=== PATIENT | male | born 1965 | race Caucasian/White ===

== ENCOUNTER 2019-12-15 12:43 | Outpatient (CLI) | payer BC ==
--- NOTE | 2019-12-15 14:15 | CT ---
CT STONE PROTOCOL: 12/15/19 HISTORY: Right flank pain. COMPARISON: None. FINDINGS: Absence of oral and IV contrast reduces the sensitivity of exam, particularly for evaluation of solid organs and bowel. No free air or free fluid is seen in the abdomen or pelvis. A large calcified gallstone measuring 4.4 cm. The spleen is enlarged measuring 16 cm in AP dimension. A normal appearing appendix is present. The small bowel loops are not abnormally dilated. No calculi is seen in the kidneys, ureters, or the urinary bladder. There is mild right sided hydrour eteronephrosis. There are periureteric inflammatory changes. The prostate is enlarged. There is no ev idence of aneurysmal dilatation of the abdominal aorta. Fat containing bilateral inguinal hernia are present. There are degenerative changes of the spine. IMPRESSION: 1. Findings suggestive of recent passage of a right sided urinary tract calculus. No evidence of obstructive uropathy is seen. 2. Mild prostatic enlargement. POS: [facility]
== END 2019-12-15 12:44 | disposition home or self-care (01) ==
LOC: CT 12:43
PROVIDERS: ATTEND Urology
DX: N20.0 Calculus of kidney (principal); N40.0 Benign prostatic hyperplasia without lower urinary tract symptoms
CPT/HCPCS: 74176; 81001; 87086

== ENCOUNTER 2020-01-14 05:50 | Outpatient (CLI) | payer BC, OTHER ==
[2020-01-14 14:52] LABS: #Eosinphils 0.1 thou/uL (0.0-0.7); #Lymphocytes 1.6 thou/uL (1.20-3.40); #Monocytes 0.5 thou/uL (0.11-0.59); #Neutrophils 2.2 thou/uL (1.40-6.50); %Basophils 0.8 % (0.0-1.0); %Eosinophils 1.5 % (0.0-10.0); %Monocytes 10.3 % (0.0-10.0); %Neutrophils 50.3 % (42.0-75.0); Hemoglobin 17.4 g/dL (14.0-18.0); Mean Corpuscular HGB CONC 33.9 g/dL (32.0-36.0); Mean Corpuscular Hemoglobin 30.4 pg (27.0-31.0); Mean Corpuscular Volume 89.8 fL (78.0-98.0); Mean Platelet Volume 8.8 fL (7.4-10.4); Platelet Count 163 thou/uL (130-400); RBC Distribution Width 12.3 % (11.5-14.5); Red Blood Cell (RBC) Count 5.73 mill/uL (4.70-6.10); White Blood Cell (WBC) Count 4.5 thou/uL (4.8-10.8)
[2020-01-14 15:10] LABS: ALT (SGPT) 49 U/L (8-55); AST (SGOT) 31 U/L (5-34); Albumin 4.8 g/dL (3.5-5.0); Alkaline Phosphatase 123 U/L (40-110); Anion Gap 14 mmol/L (10-20); BUN (Urea Nitrogen) 17 mg/dL (8.4-25.7); Bilirubin, Direct 0.5 mg/dL (0.1-0.3); Bilirubin, Total 1.6 mg/dL (0.2-1.2); Calc. Creatinine Clearance 0 mL/min (70-130); Calcium 9.8 mg/dL (7.8-10.44); Carbon Dioxide 26 mmol/L (22-29); Chloride 107 mmol/L (98-107); Estimated GFR-MDRD 63; Globulin 2.2 g/dL (2.4-3.5); Glucose 100 mg/dL (70-105); Potassium 4.8 mmol/L (3.5-5.1); Sodium 142 mmol/L (136-145)
[2020-01-15 12:09] LABS: SARS-CoV-2 MS2 Positive; SARS-CoV-2 N Gene Negative; SARS-CoV-2 S Gene Negative; SARS-CoV-2 orf1ab Negative
== END 2020-01-14 05:51 | disposition home or self-care (01) ==
LOC: LABBT 05:50
PROVIDERS: ATTEND Surgery
DX: Z01.812 Encounter for preprocedural laboratory examination (principal); Z11.59 Encounter for screening for other viral diseases; K80.20 Calculus of gallbladder without cholecystitis without obstruction
CPT/HCPCS: 80053; 80076; 85025; 87635; U0003

== ENCOUNTER 2020-01-18 10:02 | Day surgery (SDC) | payer BC ==
[2020-01-11 10:43] VITALS: BMI 34.3
[2020-01-18] MEDS ORDERED: Acetaminophen 500 MG TAB ONE (10:16)
[2020-01-18] MEDS ORDERED: Ketorolac Tromethamine 30 MG/ML VIAL ONE (10:16)
[2020-01-18] MEDS ORDERED: Midazolam HCl 2 mg/2 ml Vial ONE (10:23)
[2020-01-18] MEDS ORDERED: Fentanyl 250 MCG/5 ML VIAL ONE (10:23)
[2020-01-18] MEDS ORDERED: Bupivacaine 0.25% HCL 30 ML VIAL ONE (11:29)
[2020-01-18] MEDS ORDERED: EPINEPHrine 1 MG/ML AMP ONE (11:29)
[2020-01-18] MEDS ORDERED: Iopamidol 50 ML FS ONE (11:29)
[2020-01-18] MEDS ORDERED: Rocuronium Bromide 10 MG/ML (10ML VIAL) ONE (12:40)
[2020-01-18] MEDS ORDERED: Ondansetron PF 4 MG/2 ML Vial ONE (12:40)
[2020-01-18] MEDS ORDERED: PROPOFOL 200 MG/20 ML VIAL ONE (12:40)
[2020-01-18] MEDS ORDERED: Dexamethasone 20 MG/5 ML VIAL ONE (12:40)
[2020-01-18] MEDS ORDERED: Lidocaine 1% PF 5 ML VIAL ONE (12:40)
[2020-01-18] MEDS ORDERED: Glycopyrrolate 0.2 MG/ML 5 ML SYRINGE ONE (12:40)
--- NOTE | 2020-01-18 13:15 | RAD ---
EXAM: XR Cholangiogram in Surgery PROVIDED CLINICAL HISTORY: Intraoperative cholangiogram COMPARISON: None FINDINGS\IMPRESSION: 2 images from an intraoperative cholangiogram are submitted for interpretation. The cystic duct is ca nnulated, and there is opacification of the common duct and visualized intrahepatic ducts predominantly on the right. The left intrahepatic ducts are not well opacified. No persistent filling defect is seen on the provided images, and there is evidence of free spill of contrast into the small bowel. Surgical instruments overlie the right upper quadrant. Correlation with intraoperative f indings is recommended.
--- NOTE | 2020-01-19 19:30 | PDOC.OP ---
Operative Note - Operative Note Operative Note: DATE OF PROCEDURE: 01/18/2020 PROCEDURES: Laparoscopic cholecystectomy with intraoperative cholangiogram and liver biopsy. SURGEON: Florence Bowman M.D. PREOPERATIVE DIAGNOSIS: Symptomatic cholelithiasis and chronic elevated LFTs POSTOPERATIVE DIAGNOSIS: Symptomatic cholelithiasis and chronic elevated LFTs FINDINGS: Chronically inflamed gallbladder with large stone and extensive omental adhesions. Fatty appearing liver. Normal intraoperative cholangiogram. HISTORY: Patient with signs and symptoms of biliary colic. Laparoscopic cholecystectomy was recommended for symptomatic relief and prevention of future episodes. Intraoperative cholangiogram was also recommended. PROCEDURE: After informed consent was obtained and appropriate preoperative antibiotics were administered, the patient was taken to the operating room and placed in the supine position and general endotracheal anesthesia was administered. The stomach was decompressed with an OG tube and the abdomen was prepped and draped in standard sterile fashion. Local anesthesia was infused to the skin and subcutaneous tissues at the umbilical level. A transverse skin incision was made. The fascia was elevated and a Veress needle was placed into the abdominal cavity without difficulty. Opening pressure was less than 5 and carbon dioxide gas easily insufflated to an intra-abdominal pressure of 15, which the patient tolerated well. The Veress needle was withdrawn and a Borup port advanced under direct vision. The abdominal cavity was carefully examined. There was no evidence of Veress needle or of trocar injury. Local anesthesia was infused to the skin and subcutaneous tissues at the epigastric, right upper quadrant, and right lateral abdominal sites and trocars were placed under direct vision of the laparoscope. The gallbladder was completely obscured by omentum. These omental adhesions were taken down and the fundus of the gallbladder was exposed. The fundus of the gallbladder was grasped and retracted superiorly and additional omental adhesions to the lower half of the gallbladder were stripped inferiorly through the avascular plane exposing the infundibulum.. The infundibulum was grasped and retracted laterally. The serosa was stripped inferiorly at the level of the neck of the gallbladder exposing the cystic duct and artery which were traced clearly to their insertion in the gallbladder. These were dissected free circumferentially and the cystic duct was clipped at the level of the neck of the gallbladder. The cystic artery was clipped but not divided. An incision was made in the cystic duct inferior to the clip and the cystic duct was palpated with no stones palpable. Clear bile was seen to flow from the cystic duct incision. A cholangiogram catheter was introduced and placed into the cystic duct and secured with a clip. A cholangiogram was obtained which showed an adequate length of cystic duct. There was normal filling of the common bile duct with free flow of contrast into the duodenum. There was normal retrograde flow into the common hepatic duct beyond the level of the bifurcation without filling defects. The cholangiogram catheter was removed and the cystic duct clipped below the incision in the cystic duct. The cystic duct was divided between these clips and the previously placed clip. The cystic artery was clipped and divided between the previously placed clips. The gallbladder was then dissected free of the gallbladder bed using hook electrocautery. Prior to complete removal of the gallbladder from the gallbladder bed, the area of the cystic duct and artery stumps was examined. The clips were in good position completely across these structures and there was no bleeding and no leakage of bile. The gallbladder was then placed into an EndoCatch bag and drawn out through the epigastric incision, after crushing and removing the very large hard stone in the gallbladder. The epigastric trocar was replaced and the operative site easily irrigated to clear. A pair of scissors was then used to remove a wedge biopsy of the liver between the gallbladder fossa and the falciform ligament. The biopsy site was cauterized and hemostasis verified. The liver biopsy was sent in formalin. The epigastric trocar was removed and the fascia closed under direct laparoscopic vision with a 0 Vicryl suture on a GraNee needle in a [id number] manner with excellent technical result. The right upper quadrant and right lateral abdominal trocars were removed and hemostasis verified. Carbon dioxide gas was allowed to desufflate through the umbilical trocar which was then removed. The skin incisions were closed with 4- 0 subcuticular Monocryl sutures and Dermabond dressings were placed. The patient was extubated and taken to the recovery room in good condition. There were no complications. ESTIMATED BLOOD LOSS: Minimal. SPECIMEN : Gallbladder and contents, liver biopsy.
== END 2020-01-18 15:31 | disposition home or self-care (01) ==
LOC: SDC 10:02
PROVIDERS: ATTEND Surgery
PROC: BF121ZZ Fluoroscopy of Gallbladder using Low Osmolar Contrast (ICD-10-PCS; principal; 2020-01-18)
PROC: 0FT44ZZ Resection of Gallbladder, Percutaneous Endoscopic Approach (ICD-10-PCS; principal; 2020-01-18)
PROC: 0FB03ZX Excision of Liver, Percutaneous Approach, Diagnostic (ICD-10-PCS; principal; 2020-01-18)
DX: K80.20 Calculus of gallbladder without cholecystitis without obstruction (principal); R94.5 Abnormal results of liver function studies; E78.5 Hyperlipidemia, unspecified; I10 Essential (primary) hypertension; M19.90 Unspecified osteoarthritis, unspecified site; Z79.899 Other long term (current) drug therapy; Z87.891 Personal history of nicotine dependence
CPT/HCPCS: 47532; 88304; 88307; 88313; J0171; J0690; J1100; J1610; J1885; J2001; J2250; J2405; J2704; J3010; Q9967; S0020